=== PATIENT | female | born 1970 | race Two or more races ===

== ENCOUNTER → 2018-01-05 | Outpatient (CLI) | payer OTHER ==
[~2018-01-05] MED LIST: ESCITALOPRAM OX10 MG; WELLBUTRIN XL300 MG
== END | disposition home or self-care (01) ==
LOC: PPHC 08:25
DX: J06.9 Acute upper respiratory infection, unspecified (principal)

== ENCOUNTER → 2018-12-27 | Outpatient (CLI) | payer OTHER | END | disposition home or self-care (01) | LOC: RAD 501 13:26 | DX: M54.5 Low back pain (principal) ==

== ENCOUNTER 2021-06-21 08:00 | Outpatient (CLI) | payer OTHER | END 2021-06-21 08:30 | disposition home or self-care (01) | LOC: PPH VACUNA 08:00 | PROVIDERS: ATTEND Emergency Medicine Pediatric Emergency Medicine | DX: Z23 Encounter for immunization (principal) ==